=== PATIENT | female | born 1960 | race Caucasian/White ===

== ENCOUNTER 2021-08-16 13:49 | Emergency (ER) | payer OTHER, SELFPAY ==
[2021-08-16] VITALS (18 sets, daily range): BP systolic 123–160; BP diastolic 66–91; PULSE 51–60; RESP 13–25; TEMP 36.6; O2SAT 96–100
--- NOTE | ~2021-08-16 | CT_ITS ---
EXAMINATION: CTA chest PE protocol DATE: 08/16/2021 19:50 INDICATION: Chest pain TECHNIQUE: Computed tomography (CT) pulmonary angiogram of the chest was performed with 100 mL Omnipa que-350 intravenous contrast. Additional 3D reconstructions utilizing coronal maximum intensity proje ction (MIP) were performed. Automated exposure control and iterative reconstruction technique were em ployed. The dose-length product was 389.23 mGy-cm. COMPARISON: None FINDINGS: Excellent contrast opacification of the pulmonary arteries. There is mild streak artifact from dense contrast in the superior vena cava and right atrium. Minimal scattered respiratory motion artifact wh ich does not significantly limit evaluation. No pulmonary embolus. No pneumonia, pulmonary edema, ple ural effusion or pneumothorax. Heart size is normal. No pericardial effusion. Thoracic aorta is bret l in caliber with no dissection. Goiter with 3.0 cm right thyroid nodule. No pathologically enlarged thoracic lymphadenopathy. Cholecystectomy clips at the gallbladder fossa. Mild thoracic spondylosis. IMPRESSION: 1. No pulmonary embolism or other acute cardiopulmonary disease. Reviewed, dictated and finalized at location A.
--- NOTE | ~2021-08-16 | XR_ITS ---
EXAMINATION: XR chest 2V 08/16/2021 14:53 INDICATION: Sternal pain PROCEDURE: 2 view chest COMPARISON: No prior studies for comparison. FINDINGS: The lungs are clear. The cardiomediastinal silhouette is within normal limits. There are no pleural effusions. There is no pneumothorax suspected. IMPRESSION: 1: NO ACUTE CARDIOPULMONARY DISEASE. Reviewed, dictated and finalized at location A.
--- NOTE | 2021-08-16 14:10 | ECG_ITS ---
Measurements Intervals [place] Rate: 57 P: 37 MS: 157 QRS: -9 QRSD: 117 T: 43 QT: 409 QTc: 399 Interpretive Statements SINUS BRADYCARDIA BORDERLINE ECG Electronically Signed On 08-16-2021 14:50:12 CDT by Jamari Espinosa D.O.
[2021-08-16 14:49] LABS: Basophils Absolute Auto 0.1 K/mm3 (0.0-0.1); Basophils Percent Auto 0.7 % (0.2-1.2); Eosinophils Absolute Auto 0.2 K/mm3 (0-0.3); Eosinophils Percent Auto 2.4 % (0-4.4); Hematocrit 42.7 % (37.0-47.0); Hemoglobin 14.4 g/dL (12.0-15.0); Immature Granulocyte Absolute 0.01 K/mm3 (0.00-0.031); Immature Granulocyte Percent A 0.1 % (0-0.5); Lymphocytes Absolute Auto 2.65 K/mm3 (0.9-3.2); Lymphocytes Percent Auto 39.1 % (18.3-44.2); Mean Corpuscular HGB Conc 33.7 g/dl (32-36); Mean Corpuscular Hemoglobin 31.6 pg (26-34); Mean Corpuscular Volume 93.8 fl (80-100); Mean Platelet Volume 10.6 fl (7.4-10.4); Monocytes Absolute Auto 0.6 K/mm3 (0.1-0.6); Monocytes Percent Auto 8.6 % (2.6-8.5); Neutrophils Absolute Auto 3.3 K/mm3 (1.3-6.7); Neutrophils Percent Auto 49.1 % (45.5-73.1); Platelet Count Result 271 k/mm3 (150-375); Red Blood Count 4.55 M/mm3 (4.2-5.4); Red Cell Distribution Width 12.7 % (11.5-14.5); White Blood Count 6.8 K/mm3 (4.5-10.0)
[2021-08-16 14:58] LABS: Anion Gap 13 mmol/L (8-16); Blood Urea Nitrogen 18 mg/dL (7-17); Calcium 9.4 mg/dL (8.4-10.2); Carbon Dioxide 24 mmol/L (22-30); Chloride 105 mmol/L (98-107); Estimated CRCL calculation 94 ml/min; Estimated Glomerular Filt Rate > 60; Glucose 89 mg/dL (65-110); Potassium 4.2 mmol/L (3.4-5.0); Sodium 142 mmol/L (137-145)
[2021-08-16 15:01] LABS: INR 0.9; Partial Thromboplastin Time 23.7 SECONDS (22.3-36.8); Prothrombin Time 12.1 Seconds (11.1-14.7)
[2021-08-16 15:10] LABS: Troponin I < 0.012 ng/mL (0.000-0.034)
--- NOTE | 2021-08-16 17:26 | ED.GENADULT ---
HPI - General Adult General Chief complaint: Chest Pain Stated complaint: Sternal Pain Time Seen by Provider: 08/16/21 17:26 History of Present Illness HPI narrative: Patient is a 61-year-old female with history of hyperlipidemia who comes to the emergency room today complaining of chest pain. This chest pain has actually been present intermittently for almost a month now. It started shortly after she had the COVID-19 virus in the early part of June. She was fully vaccinated. Her COVID-19 symptoms included anosmia, a dry cough and fatigue. The chest pain is located over the midsternal aspect of her chest but occasionally radiates into upper back and into both shoulders. It seems to have come and gone for the last 1 month but has been present for the last 3 days and has been constant. It is not pleuritic, no shortness of breath, no lower extremity edema. No known exacerbating or alleviating factors. No previous history of similar symptoms. Related Data Allergies Allergy/AdvReac Type Severity Reaction Status Date / Time atorvastatin [From Lipitor] Allergy Swelling Verified 08/16/21 19:10 bacitracin Allergy Unknown Verified 08/16/21 19:10 [From Neosporin ([id number])] lovastatin Allergy Swelling Verified 08/16/21 19:10 neomycin Allergy Unknown Verified 08/16/21 19:10 [From Neosporin ([id number])] polymyxin B Allergy Unknown Verified 08/16/21 19:10 [From Neosporin ([id number])] Review of Systems Constitutional: Constitutional: Reports as per HPI, Denies fever(s), Denies night sweats and Denies weakness Cardiovascular: Cardiovascular: Reports chest pain, Denies edema, Denies leg edema, Denies dyspnea and Denies orthopnea Respiratory: Respiratory: Denies cough and Denies dyspnea Gastrointestinal: Gastrointestinal: Denies abdominal pain, Denies constipation, Denies diarrhea, Denies nausea and Denies vomiting Musculoskeletal: Musculoskeletal: Denies abnormal gait, Denies back pain, Denies numbness and Denies tingling Neurologic: Denies Abnormal speech present, Denies abnormal gait, Denies numbness, Denies tingling and Denies weakness Psychiatric: Psychiatric: Denies homicidal ideation and Denies suicidal ideation Exam Const: General: cooperative, healthy appearing, comfortable, no acute distress, well developed, alert, awake and Physically active Orientation/consciousness: patient oriented x3 HENMT: Head: normal to inspection, normocephalic and atraumatic Ears: external ears normal General nose exam: Normal external nose present Eyes: Pupils: Equal, round and reactive pupils present EOM: EOMs intact bilaterally Neck: Neck: normal visual inspection Chest: Chest palpation & inspection: normal inspection of the chest and no tenderness Other: Tender to palpation over mid/chest which reproduces her pain. Resp: Effort & Inspection: normal respiratory effort and able to speak in complete sentences Auscultation: clear to auscultation bilaterally Cardio: Rate: regular rate Rhythm: regular rhythm GI: Inspection: normal to inspection GI Palp: No abdominal tenderness : General: Yes no CVA tenderness Back/Spine/Pelvis: Back: no CVA tenderness Skin: General skin exam: normal color and no rashes or lesions noted Lesions: no lesions Neuro: General: patient oriented x3, no focal motor deficits and CN's II-XI intact bilaterally Cranial nerves: Yes Equal, round and reactive pupils present Speech: No Abnormal speech present Extrem: General: normal to inspection and full ROM Psych: Appearance: grossly normal and well kempt Mental Status: mental status grossly normal Speech and movement: Normal speech and movement present Affect: normal affect Thought process: Normal thought process present Course Reevaluation(s) Reevaluation #1: Chest pain very atypical. Work-up very reassuring including 2 - troponins and a normal CTA of chest. Patient feeling better after Toradol. Very likely costocho
[2021-08-16 18:12] LABS: Troponin I < 0.012 ng/mL (0.000-0.034)
[2021-08-16] MEDS: LACTATED RINGERS 1,000 ML 999 ML IV CONT (19:26)
[2021-08-16] MEDS: KETOROLAC 15 MG/ML VIAL (*BKC) IV PUSH (19:27)
[2021-08-16 20:47] LABS: Troponin I < 0.012 ng/mL (0.000-0.034)
--- NOTE | 2021-08-16 20:53 | PC.NURSE ---
Aspirin not needed per PA Mustapha
== END 2021-08-16 21:24 | disposition home or self-care (01) ==
PROVIDERS: Emergency Medicine; Emergency Provider Emergency Medicine; PCP Family Medicine
DX: R07.89 Other chest pain (principal); E78.5 Hyperlipidemia, unspecified; Z86.16 Personal history of COVID-19
CPT/HCPCS: 36415; 71046; 71275; 80048; 84484; 85025; 85610; 85730; 93005; 96361; 96374; 99284; J1885; J7120; Q9967

== ENCOUNTER 2024-08-20 09:05 | Emergency (ER) | payer OTHER, SELFPAY ==
[2024-08-20 09:20] VITALS: BP 129/86; PULSE 57; RESP 16; TEMP 36.2; O2SAT 99
--- NOTE | 2024-08-20 09:33 | ED.EAR ---
HPI - Ear Problem General Chief complaint: Ear Stated complaint: left ear pain,nose feels blocked left side Time Seen by Provider: 08/20/24 09:34 Source: patient and RN notes reviewed Mode of arrival: ambulatory Limitations: no limitations History of Present Illness HPI Narrative: 64-year-old female presents concern for more than 1 week history of congestion pressure, pain left ear pain. She reports using Neti pot and Mucinex D without relief. She reports symptoms are causing her to not be able to focus at work. MD Complaint: ear pain Related Data Home Medications Medication Instructions Recorded Confirmed ezetimibe 10 mg tablet 10 mg PO DAILY 08/20/24 08/20/24 hydrocortisone acetate 25 mg 25 mg RECTAL DAILY 08/20/24 08/20/24 rectal suppository ipratropium bromide 42 mcg (0.06 2 spray intranasal TID 08/20/24 08/20/24 %) nasal spray omeprazole 20 mg capsule,delayed 20 mg PO DAILY 08/20/24 08/20/24 release Allergies Allergy/AdvReac Type Severity Reaction Status Date / Time atorvastatin [From Lipitor] Allergy Swelling Verified 08/20/24 09:09 bacitracin Allergy Unknown Verified 08/20/24 09:09 [From Neosporin ([id number])] lovastatin Allergy Swelling Verified 08/20/24 09:09 neomycin Allergy Unknown Verified 08/20/24 09:09 [From Neosporin ([id number])] polymyxin B Allergy Unknown Verified 08/20/24 09:09 [From Neosporin ([id number])] Review of Systems Review of Systems: CONSTITUTIONAL: Reports malaise. EYES: Denies visual changes, redness, or discharge. ENT: Reports rhinorrhea, congestion, sinus pain, and sore throat. Reports ear pain CARDIOVASCULAR: Denies chest pain, palpitations, or edema. RESPIRATORY: Reports cough. Denies dyspnea. GASTROINTESTINAL: Denies abdominal pain, nausea, vomiting, diarrhea SKIN: Denies rash or itching. MUSCULOSKELETAL: Denies myalgia. NEUROLOGIC: Reports headache. All systems reviewed & are unremarkable except as noted in HPI and below PMFSH Comments At time of signature, agree with nursing past medical, surgical, social and family history. There is no relevant family history pertinent to the presenting complaint Exam Narrative: GENERAL: Nontoxic-appearing, well-nourished, and in no acute distress. HEAD: Normocephalic EYES: PERRLA, conjunctivae clear ENT: Nares clear. Mucous membranes moist. TM pearly glaser with dull light reflex bilaterally; no tragal tenderness. Oropharynx not erythematous without lesions. Tonsils not enlarged and without exudate, no drooling, no hoarseness, no trismus, uvula midline. NECK: Supple. No lymphadenopathy CHEST: Clear to auscultation, breath sounds equal. No wheezing, rhonchi, rales, or stridor. No respiratory distress, speaks in full sentences. Cough noted HEART: Regular rate and rhythm. No murmur heard. SKIN: Warm, dry, no rash. NEURO: Alert and oriented x3. PSYCH: Normal mood and affect Course Course Emergency Course: Patient is aware of diagnosis, understands and agrees to treatment plan. Anticipatory guidance given. Patient agrees to follow-up as directed and is aware of reasons to seek care at the emergency department. Portions of this record may have been created with voice recognition software Level of Care: Express Care Visit Vital Signs Vital signs: Vital Signs Temperature 97.2 F L 08/20/24 09:20 Pulse Rate 57 L 08/20/24 09:20 Respiratory Rate 16 08/20/24 09:20 Blood Pressure 129/86 08/20/24 09:20 Pulse Oximetry 99 08/20/24 09:20 Oxygen Delivery Room Air 08/20/24 09:20 Temperature 97.2 F L 08/20/24 09:20 Pulse Rate 57 L 08/20/24 09:20 Respiratory Rate 16 08/20/24 09:20 Blood Pressure 129/86 08/20/24 09:20 Pulse Oximetry 99 08/20/24 09:20 Oxygen Delivery Room Air 08/20/24 09:20 Reviewed. Medical Decision Making MDM Narrative Medical decision making narrative: I evaluated this in the express care. History is obtained f
== END 2024-08-20 09:45 | disposition home or self-care (01) ==
PROVIDERS: Emergency Provider Nurse Practitioner; PCP Family Medicine
DX: J01.90 Acute sinusitis, unspecified (principal); B96.89 Other specified bacterial agents as the cause of diseases classified elsewhere
CPT/HCPCS: 99213; G0463

== ENCOUNTER 2025-01-25 11:42 | Emergency (ER) | payer OTHER, SELFPAY ==
--- NOTE | 2025-01-25 12:00 | ED.FEMALEGU ---
HPI - Female Genitourinary General Chief complaint: Urogenital-Female Stated complaint: UTI Time Seen by Provider: 01/25/25 12:00 Source: patient, RN notes reviewed and old records reviewed Mode of arrival: ambulatory Limitations: no limitations History of Present Illness HPI Narrative: Patient presents with complaints of urinary frequency and burning for about 1 week. She reports that symptoms became much worse today. She denies any fever, chills, sweats. She does report that she is more tired than usual. She denies any backache or belly pain. She denies any nausea or vomiting. She denies any injury or trauma. Voices no other concerns or complaints Related Data Home Medications ?Medication ?Instructions ?Recorded ?Confirmed ?Last Taken ?Type ezetimibe 10 mg tablet 10 mg PO DAILY 08/20/24 08/20/24 Unknown History hydrocortisone acetate 25 mg 25 mg RECTAL DAILY 08/20/24 08/20/24 Unknown History rectal suppository ipratropium bromide 42 mcg (0.06 2 spray intranasal TID 08/20/24 08/20/24 Unknown History %) nasal spray omeprazole 20 mg capsule,delayed 20 mg PO DAILY 08/20/24 08/20/24 Unknown History release Allergies Allergy/AdvReac Type Severity Reaction Status Date / Time atorvastatin (From Lipitor) Allergy Swelling Verified 01/25/25 11:46 bacitracin (From Neosporin Allergy Unknown Verified 01/25/25 11:46 ([id number])) lovastatin Allergy Swelling Verified 01/25/25 11:46 neomycin (From Neosporin Allergy Unknown Verified 01/25/25 11:46 ([id number])) polymyxin B (From Neosporin Allergy Unknown Verified 01/25/25 11:46 ([id number])) Review of Systems Review of Systems: All systems reviewed & are unremarkable except as noted in HPI and below Constitutional: Constitutional: Reports no additional constitutional complaints ENT: Reports system reviewed and no additional complaints, except as documented Cardiovascular: Cardiovascular: Reports no additional cardiovascular complaints Respiratory: Respiratory: Reports no additional respiratory complaints Gastrointestinal: Gastrointestinal: Reports no additional gastrointestinal complaints Genitourinary: Genitourinary: Reports dysuria and Reports urinary urgency PMFSH Comments At the time of my signature, I reviewed and agree with the nursing past medical, surgical, social, and family history. There is no relevant family history pertinent to the patient complaint. Exam Const: General: cooperative, no acute distress, alert and awake Orientation/consciousness: oriented to person, oriented to place and oriented to time HENMT: Head: normal to inspection Resp: Effort & Inspection: normal respiratory effort and able to speak in complete sentences Auscultation: clear to auscultation bilaterally, no crackles, no rales, no rhonchi and no wheezes Cardio: Palpation: normal PMI Rate: regular rate Rhythm: regular rhythm Heart sounds: S1 normal heart sound present and S2 normal heart sound present : General: Yes bladder normal to palpation and Yes no CVA tenderness Neuro: General: oriented to person, oriented to place and oriented to time Cranial nerves: Yes CN's II-XII intact bilaterally Psych: Appearance: grossly normal Thought process: Normal thought process present Insight: Good insight present (Psych) Judgement: Good judgement present (Psych) Course Course Level of Care: Express Care Visit Vital Signs Vital signs: Reviewed MDM - Female Genitourinary MDM Narrative Medical decision making narrative: Reassuring physical exam, UA consistent with UTI. Start Macrobid. Sent for culture. Emergency department for new or worse symptoms, follow-up with primary care provider. Discharge instructions reviewed with patient, as well as provided in writing per nursing staff. The instructions also include specific and strict return/GO TO THE ER as well as f/u information. All questions have been answered, and the patient deny any further questions with discharge and discharge plan. Some parts of this dictation were generated by voice recognition software and may contain typographical and/or grammatical inaccuracies. Differential Diagnosis Differential diagnosis: Likely urinary tract infection and cystitis Medical Records Attestation: I reviewed the patient's medical records. Lab Data Attestation: I reviewed the patient's lab results. Discharge Plan Discharge Clinical Impression: Elevated blood pressure reading Urinary tract infection Qualifiers: Urinary tract infection type: site unspecified Hematuria presence: with hematuria Qualified Code(s): N39.0 - Urinary tract infection, site not specified Patient Disposition: Home, Self-Care Condition: Stable Instructions: Antibiotic Form, Urinary Tract Infection in Women (ED) Additional Instructions: Take medications as prescribed. Follow with primary care provider. Emergency department for new or worse symptoms Patient Language: Colombian Prescriptions: New nitrofurantoin monohyd/m-cryst [Macrobid] 100 mg capsule 100 mg PO Q12H 5 Days Qty: 10 0RF Rx Instructions: must administer with a meal/food No Action hydrocortisone acetate 25 mg suppository 25 mg RECTAL DAILY omeprazole 20 mg capsule,delayed release(DR/EC) 20 mg PO DAILY ipratropium bromide 42 mcg (0.06 %) spray,non-aerosol 2 spray INTRANASAL TID ezetimibe 10 mg tablet 10 mg PO DAILY Follow-up/Referrals: Favian,Dorita Dobbins MD [Primary Care Provider] - 2 Weeks Time of Disposition: 12:48
[2025-01-25 12:02] VITALS: BP 153/88; PULSE 64; RESP 16; TEMP 36.6; O2SAT 99
[2025-01-25 12:07] LABS: EDUAAPPEAR Clear; EDUABILI Negative (Negative); EDUABLOOD 2+ (Negative); EDUACOLOR1 Yellow; EDUAGLUCOSE Negative (Negative); EDUAKETONE Negative (Negative); EDUALEUKO 2+ (Negative); EDUANITRATE Negative (Negative); EDUAPROTEIN 2+ (Negative); EDUAUROBILI 0.2
== END 2025-01-25 12:55 | disposition home or self-care (01) ==
PROVIDERS: Emergency Provider Nurse Practitioner Family; PCP Family Medicine
DX: N39.0 Urinary tract infection, site not specified (principal); I10 Essential (primary) hypertension; E78.00 Pure hypercholesterolemia, unspecified; K21.9 Gastro-esophageal reflux disease without esophagitis; Z96.652 Presence of left artificial knee joint; Z86.16 Personal history of COVID-19
CPT/HCPCS: 81003; 87086; 99213; G0463